=== PATIENT | female | born 1985 | race Caucasian/White ===

== ENCOUNTER 2017-12-06 17:40 | Outpatient (CLI) | payer OTHER | END 2017-12-06 18:55 | disposition home or self-care (01) | LOC: OBT 17:40 → L-D 17:42 → OBT 18:55 | DX: O62.9 Abnormality of forces of labor, unspecified (principal); Z3A.22 22 weeks gestation of pregnancy | CPT/HCPCS: 76817 ==

== ENCOUNTER 2018-03-06 02:15 | Inpatient (IN) | payer OTHER ==
[2018-03-06] MEDS ORDERED: LIDOCAINE 1% (MPF) 30 ML INJ INJ (03:30)
[2018-03-06] MEDS ORDERED: CARBOPROST 250 MCG INJ IM ×3 (03:30→07:00)
[2018-03-06] MEDS ORDERED: OXYTOCIN 30 UNITS/LR 500 ML IV ×5 (03:30→07:00)
[2018-03-06] MEDS ORDERED: BUTORPHANOL 2 MG INJ IV (03:30)
[2018-03-06] MEDS ORDERED: MISOPROSTOL 200 MCG TAB PR ×3 (03:30→07:00)
[2018-03-06] MEDS ORDERED: IBUPROFEN 600 MG TAB PO (03:30)
[2018-03-06] MEDS ORDERED: ACETAMINOPHEN/CODEINE #3 TAB PO (03:30)
[2018-03-06] MEDS ORDERED: BUTORPHANOL 1 MG INJ IV (03:30)
[2018-03-06] MEDS: AMPICILLIN 2 GM/NS (PMX) 100 ML IV (03:41)
[2018-03-06 03:42] LABS: ADD MAN DIFF? NO
[2018-03-06] MEDS: LACTATED RINGER'S 1,000 ML IV* (03:42)
[2018-03-06 04:05] LABS: INR 0.82; PROTIME 11.3 Sec (11.9-14.9); PT RATIO 0.9
[2018-03-06 04:06] LABS: BASOPHILS % 0.2 % (0.0-2.0); EOSINOPHILS % 0.2 % (0.0-7.0); HEMATOCRIT 35.3 % (37.0-47.0); HEMOGLOBIN 11.6 g/dl (12.0-16.0); LYMPHOCYTES # 1.9 10^3/ul (0.8-2.9); LYMPHOCYTES % 19.7 % (15.0-51.0); MEAN CORPUSCULAR HEMOGLOBIN 26.4 pg (29.0-33.0); MEAN CORPUSCULAR HGB CONC 32.9 g/dl (32.0-37.0); MEAN CORPUSCULAR VOLUME 80.4 fl (82.0-101.0); MEAN PLATELET VOLUME 12.1 fl (7.4-10.4); MONOCYTE # 0.7 10^3/ul (0.3-0.9); MONOCYTES % 7.2 % (0.0-11.0); NEUTROPHIL # 6.9 10^3/ul (1.6-7.5); NEUTROPHILS % 72.1 % (39.0-77.0); PARTIAL THROMBOPLASTIN TIME 23.8 Sec (25.0-35.0); PLATELET COUNT 273 10^3/UL (140-415); RED BLOOD COUNT 4.39 10^6/ul (4.20-5.40); RED CELL DISTRIBUTION WIDTH 13.7 % (11.5-14.5)
[2018-03-06 04:06] LABS: WHITE BLOOD COUNT 9.6 10^3/ul (4.8-10.8)
[2018-03-06] MEDS ORDERED: CEFAZOLIN 2 GM/50 ML (PMX) 50 ML IV (04:10)
[2018-03-06] MEDS ORDERED: CEFAZOLIN 2 GM/50 ML (PMX) 50 ML IVPB (04:12)
[2018-03-06] MEDS: LACTATED RINGER'S 1,000 ML IV ×2 (04:12→17:58)
[2018-03-06] MEDS ORDERED: CITRIC ACID/SODIUM CITRATE 15 ML CUP (04:16)
[2018-03-06] MEDS ORDERED: METOCLOPRAMIDE 10 MG INJ (04:17)
[2018-03-06] MEDS ORDERED: FAMOTIDINE 20 MG INJ (04:17)
[2018-03-06] MEDS ORDERED: BUPIVACAINE 0.75%/DEXT (SPINAL) 2 ML INJ (04:18)
[2018-03-06] MEDS ORDERED: morphine SULFATE/PF (10 MG/10 ML) INJ (04:18)
[2018-03-06] MEDS: FAMOTIDINE 20 MG INJ IV (04:20)
[2018-03-06] MEDS: METOCLOPRAMIDE 10 MG INJ IV (04:20)
[2018-03-06] MEDS ORDERED: TERBUTALINE 1 ML (04:22)
[2018-03-06] MEDS: CITRIC ACID/SODIUM CITRATE 15 ML CUP PO (04:25)
[2018-03-06] MEDS: TERBUTALINE 1 MG/ML INJ SC (04:28)
[2018-03-06] MEDS ORDERED: METHYLERGONOVINE 0.2 MG INJ IM ×2 (04:30→07:00)
[2018-03-06 04:35] LABS: HEPATITIS B SURFACE ANTIGEN NEGATIVE (NEGATIVE)
[2018-03-06] MEDS ORDERED: PHENYLephrine (100 MCG/ML) 5ML SYG ×2 (04:37→04:49)
[2018-03-06] MEDS ORDERED: ONDANSETRON 4 MG INJ (05:07)
[2018-03-06] MEDS ORDERED: MIDAZOLAM 1 MG/ML 2 ML INJ (05:16)
[2018-03-06] MEDS: CEFAZOLIN 2 GM/50 ML (PMX) 50 ML IVPB (05:38)
[2018-03-06] MEDS: METHYLERGONOVINE 0.2 MG INJ IM (05:38)
[2018-03-06] MEDS: OXYTOCIN 30 UNITS/LR 500 ML IV ×3 (06:00→08:47)
[2018-03-06] MEDS: ONDANSETRON 4 MG INJ IV ×3 (06:21→13:58)
[2018-03-06] MEDS ORDERED: HYDROmorphONE 1 MG/5 ML IV SYRINGE IV ×3 (06:30)
[2018-03-06] MEDS ORDERED: PROCHLORPERAZINE 10 MG INJ IV (06:30)
[2018-03-06] MEDS ORDERED: ZOLPIDEM 5 MG TAB PO (06:30)
[2018-03-06] MEDS ORDERED: FENTAnyl 50 MCG/ML VIAL IV ×3 (06:30)
[2018-03-06] MEDS ORDERED: NALOXONE (0.4 MG/ML) INJ IV (06:30)
[2018-03-06] MEDS ORDERED: DIPHENHYDRAMINE 50 MG INJ IV ×2 (06:30)
[2018-03-06] MEDS ORDERED: HYDROmorphONE 0.5 MG/0.5 ML SYG IV ×2 (06:30)
[2018-03-06] MEDS ORDERED: MEPERIDINE 25 MG INJ IV (06:30)
[2018-03-06] MEDS: KETOROLAC 30 MG INJ IV ×2 (06:35→15:01)
[2018-03-06] MEDS ORDERED: DEXTROSE 5%-LR 1,000 ML IV (06:48)
[2018-03-06] MEDS ORDERED: METHYLERGONOVINE 0.2 MG TAB PO (07:00)
[2018-03-06] MEDS ORDERED: AMPICILLIN 1 GM/NS (PMX) 50 ML IV (07:30)
[2018-03-06] MEDS: SENNA/DOCUSATE NA (8.6MG/50MG) TAB PO ×2 (09:00→21:00)
[2018-03-06 09:42] LABS: AMPHETAMINE/METHAMPHETAMINE Negative (NEGATIVE); BARBITURATES Negative (NEGATIVE); CANNABINOIDS Negative (NEGATIVE); COCAINE Negative (NEGATIVE)
[2018-03-06 09:54] LABS: BENZODIAZEPINES Positive (NEGATIVE); OPIATES Positive (NEGATIVE)
[2018-03-06] MEDS: IBUPROFEN 800 MG TAB PO ×2 (14:00→22:00)
[2018-03-06 19:38] LABS: RAPID PLASMA REAGIN NONREACTIVE (NR)
[2018-03-07] MEDS: LACTATED RINGER'S 1,000 ML IV (00:10)
[2018-03-07] MEDS: KETOROLAC 30 MG INJ IV (04:56)
[2018-03-07] MEDS: IBUPROFEN 800 MG TAB PO ×3 (06:00→21:43)
[2018-03-07 08:28] LABS: ADD MAN DIFF? NO
[2018-03-07 08:32] LABS: WHITE BLOOD COUNT 8.5 10^3/ul (4.8-10.8)
[2018-03-07 08:32] LABS: BASOPHILS % 0.1 % (0.0-2.0); EOSINOPHILS % 0.2 % (0.0-7.0); HEMATOCRIT 27.6 % (37.0-47.0); HEMOGLOBIN 8.8 g/dl (12.0-16.0); LYMPHOCYTES # 1.3 10^3/ul (0.8-2.9); LYMPHOCYTES % 14.7 % (15.0-51.0); MEAN CORPUSCULAR HEMOGLOBIN 26.3 pg (29.0-33.0); MEAN CORPUSCULAR HGB CONC 31.9 g/dl (32.0-37.0); MEAN CORPUSCULAR VOLUME 82.6 fl (82.0-101.0); MEAN PLATELET VOLUME 11.7 fl (7.4-10.4); MONOCYTE # 0.6 10^3/ul (0.3-0.9); NEUTROPHIL # 6.6 10^3/ul (1.6-7.5); NEUTROPHILS % 77.6 % (39.0-77.0); PLATELET COUNT 207 10^3/UL (140-415); RED BLOOD COUNT 3.34 10^6/ul (4.20-5.40); RED CELL DISTRIBUTION WIDTH 14.3 % (11.5-14.5)
[2018-03-07] MEDS: SENNA/DOCUSATE NA (8.6MG/50MG) TAB PO ×2 (09:07→21:42)
[2018-03-07] MEDS: HYDROCODONE/APAP (5/325) TAB PO ×4 (10:24→21:43)
[2018-03-07] MEDS: FERROUS SULFATE (EC) 325 MG TAB PO ×2 (13:03→21:42)
[2018-03-08] MEDS: MAGNESIUM HYDROXIDE 30ML CUP PO (04:06)
[2018-03-08] MEDS: IBUPROFEN 800 MG TAB PO ×3 (05:50→21:38)
[2018-03-08] MEDS: HYDROCODONE/APAP (5/325) TAB PO ×5 (05:50→21:39)
[2018-03-08] MEDS: SENNA/DOCUSATE NA (8.6MG/50MG) TAB PO ×2 (08:23→21:38)
[2018-03-08] MEDS: FERROUS SULFATE (EC) 325 MG TAB PO ×3 (08:23→21:39)
[2018-03-08] MEDS: LANOLIN 7 GM TUBE TOP (21:39)
[2018-03-09] MEDS: IBUPROFEN 800 MG TAB PO (05:33)
[2018-03-09] MEDS: HYDROCODONE/APAP (5/325) TAB PO (05:33)
[2018-03-09] MEDS: FERROUS SULFATE (EC) 325 MG TAB PO ×2 (08:25→12:58)
[2018-03-09] MEDS: SENNA/DOCUSATE NA (8.6MG/50MG) TAB PO (08:25)
[2018-03-09] MEDS: MEASLES,MUMPS,RUBELLA VACCINE INJ SC* (08:26)
[2018-03-09] MEDS: DIPHTH/TET/ACEL PERTUSS (ADULT) 0.5 ML VIAL IM* (11:20)
== END 2018-03-09 12:55 | disposition home or self-care (01) | DRG 766 ==
LOC: OBT 02:15 → L-D 02:15 → OBT 02:58 → L-D 02:58 → PP1 08:59
PROVIDERS: Obstetrics & Gynecology
PROC: 10D00Z1 Extraction of Products of Conception, Low, Open Approach (ICD-10-PCS; principal; 2018-03-06 05:00)
DX: O32.8XX0 Maternal care for other malpresentation of fetus, not applicable or unspecified (principal); Z3A.35 35 weeks gestation of pregnancy; Z37.0 Single live birth; Z23 Encounter for immunization
CPT/HCPCS: 76815; 80307; 85025; 85610; 85730; 86592; 86850; 86900; 86901; 87340; 90715; 99464